=== PATIENT | female | born 1950 | race American Indian/Alaskan Native ===

== ENCOUNTER 2020-12-21 11:00 | Outpatient (CLI) | payer OTHER ==
--- NOTE | 2020-12-23 08:07 | Mammography Report ---
DIGITAL SCREENING MAMMOGRAM WITH CAD, 12/21/2020 CLINICAL INFORMATION / INDICATION: Routine screening mammography. SCREENING MAMMOGRAM TECHNIQUE: Digital bilateral 2D mammography was obtained in the craniocaudal and mediolateral obliqu e projections. This examination was interpreted with the benefit of Computer-Aided Detection analysis . COMPARISON: None. FINDINGS: Breast Density: There are scattered areas of fibroglandular density. Mild nodularity posterior to the right nipple. Possible area of architectural distortion 3:00 left br east middle depth. Bilateral spot compression views with possible ultrasound is recommended. IMPRESSION: Right breast nodularity. Possible architectural distortion left breast. Follow up recommendation: Special View: Spot BI-RADS Category 0: Incomplete. Needs additional imaging evaluation and/or prior mammograms for rommel varela. A "normal" or negative report should not discourage follow up or biopsy of a clinically significant f inding. A written summary of these findings will be mailed to the patient. The patient will be entered into a mammography reporting system which will generate a reminder letter for the patient's next appointmen t at the appropriate interval. The [employer] recommends yearly mammograms starting at age 40 and continuing as l alix as a woman is in good health. Breast MRI is recommended for women with an approximate 20-25% or greater lifetime risk of breast cancer, including women with a strong family history of breast or ova akshat cancer or who have been treated for Hodgkin's disease. Signer Name: Joseph Nino MD Signed: 12/23/2020 8:03 AM Workstation Name: [id number]
== END 2020-12-21 11:01 | disposition home or self-care (01) ==
LOC: MAMMO 11:00
PROVIDERS: ATTEND Internal Medicine
DX: Z12.31 Encounter for screening mammogram for malignant neoplasm of breast (principal); N64.89 Other specified disorders of breast
CPT/HCPCS: 77067

== ENCOUNTER 2021-01-23 11:27 | Outpatient (CLI) | payer OTHER ==
--- NOTE | 2021-01-23 12:38 | Mammography Report ---
DIGITAL DIAGNOSTIC MAMMOGRAM WITH CAD , 01/23/2021 CLINICAL INFORMATION / INDICATION: Abnormal bilateral screening mammogram. r92.8 TECHNIQUE: Digital bilateral mammographic imaging was performed. Spot compression views were obtaine d. This examination was interpreted with the benefit of Computer-aided Detection analysis. COMPARISON: Recent screening mammogram 12/21/2020. Patient is unclear where older prior mammograms garza ve been performed and therefore no older mammograms are available for comparison. FINDINGS: Breast Density: There are scattered areas of fibroglandular density. Previously described nodularity in the right subareolar breast is less apparent on spot compression i maging. Additionally, area of architectural distortion in the left breast at 3-4:00 is confirmed with spot co mpression imaging but has appearance more suggestive of postsurgical scar. Patient has history of red uction mammoplasty. IMPRESSION: Probably benign findings bilaterally, most likely related to history of reduction mammopl asty. Since there are no older mammograms for comparison, recommend bilateral mammogram in 6 months t o document stability. Follow up recommendation: Short term follow up in 6 months. BI-RADS Category 3: Probably Benign. Followup in 6 months. A "normal" or negative report should not discourage follow up or biopsy of a clinically significant f inding. A written summary of these findings will be mailed to the patient. The patient will be entered into a mammography reporting system which will generate a reminder letter for the patient's next appointmen t at the appropriate interval. According to the [employer], yearly mammograms are recommended starting at age 40 and continuing as long as a woman is in good health. Breast MRI is recommended for women with an gabby roximately 20-25% or greater lifetime risk of breast cancer, including women with a strong family his tory of breast or ovarian cancer and women who have been treated for Hodgkin's disease. Signer Name: Ayana Paz MD Signed: 01/23/2021 12:33 PM Workstation Name: [id number]
== END 2021-01-23 11:28 | disposition home or self-care (01) ==
LOC: MAMMO 11:27
PROVIDERS: ATTEND Internal Medicine
DX: R92.8 Other abnormal and inconclusive findings on diagnostic imaging of breast (principal); Z01.89 Encounter for other specified special examinations
CPT/HCPCS: 77066

== ENCOUNTER 2021-09-19 10:32 | Emergency (ER) | payer OTHER ==
[2021-09-19 10:51] VITALS: BP 140/73
== END 2021-09-20 01:31 | disposition left against medical advice (07) ==
LOC: ED 10:32
DX: H57.12 Ocular pain, left eye (principal); Z53.21 Procedure and treatment not carried out due to patient leaving prior to being seen by health care provider